=== PATIENT | female | born 1970 | race African-American/Black ===

== ENCOUNTER 2017-03-26 02:05 | Emergency (ER) | payer OTHER, MEDICAID ==
[~2017-03-26] VITALS: Ht 172.7 cm; Wt 143.3 kg
[~2017-03-26 02:05] MED LIST: AMIT25TA9 PO; AMLO10TA2 PO; CARI-277 PO; CYAN100023 PO; DOCU-94 PO; ERGO1CAP6 PO; FER325T PO; FURO20TA3 PO; HYDR-1421 PO; METF-370 PO; METO25TA5 PO; MILN50TA PO; POTA8TAB2 PO
[2017-03-26 03:01] LABS: Basophils # (auto) 0.1 uL; Basophils % (auto) 0.7 % (0.0-2.0); CONDITION Y; DEFINITIVE SEE PRINTOUT; Eosinophils # (auto) 0.5 uL; Eosinophils % (auto) 4.4 % (0.0-7.0); Hemoglobin 10.8 g/dL (12.2-16.2); Lymphocytes # (auto) 2.6 uL; Lymphocytes % (auto) 25.5 % (10.0-50.0); Mean Corpuscular Hemoglobin 23.6 pg (28.0-32.0); Mean Corpuscular Hgb Conc. 31.7 g/dL (32.0-36.0); Mean Corpuscular Volume 74.4 fL (80.0-100.0); Mean Platelet Volume 7.9 fL (6.9-10.8); Monocytes # (auto) 0.5 uL; Neutrophils # (auto) 6.7 uL; Neutrophils % (auto) 64.4 % (37.0-80.0); Platelet Count (auto) 364 10^3/uL (140-450); Red Cell Distribution Width 18.2 % (11.8-14.3); White Blood Cell 10.4 10^3/uL (4.4-10.8)
[2017-03-26 03:20] LABS: INR 1.01 (0.9-1.15); Partial Thromboplastin Time 31.5 sec (22.64-33.71)
[2017-03-26 03:28] LABS: Albumin 3.6 g/dL (3.4-5.0); Alkaline Phosphatase 91 U/L (45-117); Anion Gap 8 (5-15); Aspartate Aminotransferase 7 U/L (15-37); BUN/Creatinine Ratio 10.2; Bilirubin, Total 0.2 mg/dL (0.2-1.0); Blood Urea Nitrogen 11 mg/dL (7-18); Calcium 8.8 mg/dL (8.5-10.1); Carbon Dioxide 31 mmol/L (21-32); Chloride 102 mmol/L (98-107); GFR African American 70 mL/min; GFR Non-African American 58 mL/min; Glucose 93 mg/dL (74-106); Potassium 3.9 mmol/L (3.5-5.1); Sodium 141 mmol/L (136-145)
[2017-03-26 03:34] LABS: B-Type Natriuretic Peptide 35.21 pg/mL (0-100)
[2017-03-26 03:36] LABS: Temperature: 20.2 C (20.0-25.0)
[2017-03-26 08:38] LABS: Urine Bilirubin Negative (Negative); Urine Blood Negative /uL (Negative); Urine Color Yellow (Yellow); Urine Glucose Normal (Normal); Urine Ketone Negative (Negative); Urine Nitrite Negative (Negative); Urine RBC 1 /hpf (0 - 4); Urine Squamous Epithelial Cell FEW /hpf (<5); Urine Urobilinogen Normal (Negative)
[2017-03-26 08:45] VITALS: BP 160/35
== END 2017-03-26 10:01 | disposition home or self-care (01) ==
LOC: ER 02:08
DX: R00.2 Palpitations (principal); D50.9 Iron deficiency anemia, unspecified; N39.0 Urinary tract infection, site not specified; I11.0 Hypertensive heart disease with heart failure; I50.9 Heart failure, unspecified; E11.9 Type 2 diabetes mellitus without complications; Z79.899 Other long term (current) drug therapy
CPT/HCPCS: 36415; 71020; 80053; 81001; 81025; 83735; 83880; 84443; 84484; 85025; 85379; 85610; 85730; 93005

== ENCOUNTER 2018-01-10 20:49 | Emergency (ER) | payer MEDICARE, MEDICAID ==
[~2018-01-10] VITALS: Ht 172.7 cm; Wt 136.1 kg
[2018-01-10 21:39] LABS: Basophils # (auto) 0.1 uL; Eosinophils # (auto) 0.3 uL; Hemoglobin 10.2 g/dL (12.2-16.2); Monocytes # (auto) 0.6 uL; Neutrophils # (auto) 8.3 uL
[2018-01-10 21:41] LABS: Basophils % (auto) 0.5 % (0.0-2.0); Eosinophils % (auto) 2.3 % (0.0-7.0); Hematocrit 32.1 % (36.0-46.0); Lymphocytes # (auto) 2.3 uL; Lymphocytes % (auto) 19.6 % (10.0-50.0); Mean Corpuscular Hemoglobin 23.2 pg (28.0-32.0); Mean Corpuscular Hgb Conc. 31.7 g/dL (32.0-36.0); Mean Corpuscular Volume 73.1 fL (80.0-100.0); Monocytes % (auto) 5.5 % (0.0-12.0); Neutrophils % (auto) 72.1 % (37.0-80.0); Platelet Count (auto) 309 10^3/uL (140-450); White Blood Cell 11.6 10^3/uL (4.4-10.8)
[2018-01-10 21:54] LABS: Alanine Aminotransferase 16 U/L (13-56); Albumin 3.3 g/dL (3.4-5.0); Alkaline Phosphatase 89 U/L (45-117); Amylase 55 U/L (25-115); Anion Gap 6 (5-15); Aspartate Aminotransferase 6 U/L (15-37); BUN/Creatinine Ratio 5.8; Bilirubin, Total 0.3 mg/dL (0.2-1.0); Blood Urea Nitrogen 6 mg/dL (7-18); Calcium 8.7 mg/dL (8.5-10.1); Carbon Dioxide 29 mmol/L (21-32); Chloride 102 mmol/L (98-107); GFR African American 74 mL/min; GFR Non-African American 61 mL/min; Glucose 90 mg/dL (74-106); Lipase 60 U/L (73-393); Magnesium 2.6 mg/dL (1.6-2.6); Potassium 4.1 mmol/L (3.5-5.1); Sodium 137 mmol/L (136-145); Total Protein 7.5 g/dL (6.4-8.2)
[2018-01-10 22:02] LABS: INR 0.99 (0.9-1.15); Partial Thromboplastin Time 32.5 sec (23.78-33.04); Prothrombin Time 10.6 sec (9.27-12.13)
[2018-01-10 22:40] LABS: Urine Bacteria NONE SEEN /hpf (None Seen); Urine Blood Negative /uL (Negative); Urine Specific Gravity 1.003 (1.001-1.035); Urine WBC 1 /hpf (0 - 5)
[2018-01-11] MEDS ORDERED: NALBUPHINE HCL 10 MG/1ml INJECTION IV ONE
[2018-01-11] MEDS ORDERED: ONDANSETRON HCL 4 MG/2 ML VIAL IV ONE
[2018-01-11] MEDS ORDERED: SODIUM CHLORIDE 0.9% 1,000 ML IV ONE
[2018-01-11] MEDS ORDERED: LOSARTAN POTASSIUM 50 MG TAB PO ONE
[2018-01-11 02:30] VITALS: BP 148/96
== END 2018-01-11 04:31 | disposition home or self-care (01) ==
LOC: ER 20:49
DX: K58.9 Irritable bowel syndrome, unspecified (principal); I11.0 Hypertensive heart disease with heart failure; I50.9 Heart failure, unspecified; E11.9 Type 2 diabetes mellitus without complications; Z79.899 Other long term (current) drug therapy; Z90.49 Acquired absence of other specified parts of digestive tract
CPT/HCPCS: 36415; 74176; 80053; 81001; 82150; 83690; 83735; 84484; 85025; 85610; 85730; 93005; 96374; 96375; 99285; J2300; J2405; J7030